=== PATIENT | male | born 1990 | race Caucasian/White ===

== ENCOUNTER 2017-04-07 23:11 | Emergency (ER) | payer SELFPAY ==
[2017-04-07 23:22] VITALS: BP 155/99; PULSE 88; TEMP 97.9; BMI 25.8
--- NOTE | 2017-04-08 00:44 | PDOC ---
History of Present Illness - General Chief Complaint: Substance Abuse Stated Complaint: SUBSTANCE ABUSE Time Seen by Provider: 04/08/17 00:20 Past History - Past Medical History Allergies/Adverse Reactions: Allergies Allergy/AdvReac Type Severity Reaction Status Date / Time No Known Allergies Allergy Verified 04/07/17 23:22 Home Medications: Ambulatory Orders NK [No Known Home Medication] 04/07/17 - Psycho/Social/Smoking Cessation Hx Anxiety: No Suicidal Ideation: No Smoking History: Never smoked Have you smoked in the past 12 months: No Information on smoking cessation initiated: No Hx Alcohol Use: No Drug/Substance Use Hx: No Substance Use Type: None *Physical Exam - Vital Signs Last Vital Signs Temp Pulse Resp BP Pulse Ox 97.9 F 88 18 155/99 100 04/07/17 23:20 04/07/17 23:20 04/07/17 23:20 04/07/17 23:20 04/07/17 23:20
== END 2017-04-08 00:44 | disposition left against medical advice (07) ==
LOC: JER 23:11 → SUPCPDRO 23:11 → JER 04-08 00:44
DX: Z53.21 Procedure and treatment not carried out due to patient leaving prior to being seen by health care provider (principal)
CPT/HCPCS: 99281-25

== ENCOUNTER 2019-09-13 17:57 | Emergency (ER) | payer OTHER ==
--- NOTE | 2019-09-13 18:11 | PDOC ---
Rapid Medical Evaluation Time Seen by Provider: 09/13/19 18:08 Medical Evaluation: Allergies Allergy/AdvReac Type Severity Reaction Status Date / Time No Known Allergies Allergy Verified 04/07/17 23:22 09/13/19 18:08 I have performed a brief in-person evaluation of this patient. The patient presents with a chief complaint of: patient requests "physical exam and blood work" - per mother patient has been using "horace dust" for the past few days and has been acting strangely. per mother patient has been aggressive and sometimes acts like he doesn't know her. mom states "sometimes he has chest pain" Pertinent physical exam findings: anxious, pacing around, stating "you're not going to put me in no psych gross." denying any drug use or chest pain I have ordered the following: ekg, labs, urine The patient will proceed to the ED for further evaluation. Discharge Disposition - Discharge Dispostion Condition at time of disposition: Stable - Referrals - Patient Instructions - Post Discharge Activity
[2019-09-13 18:33] VITALS: BP 126/71; PULSE 94; TEMP 98.4; BMI 25.8
[2019-09-13 18:42] LABS: BASO % 0.9 % (0-2.0); EOS % 0.7 % (0-4.5); HEMATOCRIT 43.1 % (35.4-49); HEMOGLOBIN 15.1 GM/dL (11.7-16.9); LYMPH % 23.4 % (8-40); MEAN CELL VOLUME 85.7 fl (80-96); MEAN PLT VOLUME 10.2 fl (7.5-11.1); MONO % 4.2 % (3.8-10.2); NEUT % 70.8 % (42.8-82.8); PLATELET COUNT 209 K/MM3 (134-434); RBC 5.03 M/mm3 (4.00-5.60); RDW 13.8 % (11.9-15.9); WHITE BLOOD COUNT 8.3 K/mm3 (4.0-10.0)
[2019-09-13 19:13] LABS: ALK PHOS 83 U/L (45-117); ANION GAP 7 MMOL/L (8-16); BILIRUBIN,TOTAL 0.9 mg/dL (0.2-1); BLOOD UREA NITROGEN 14.7 mg/dL (7-18); CALCIUM 9.1 mg/dL (8.5-10.1); CHLORIDE 106 mmol/L (98-107); CO2 29 mmol/L (21-32); CREATININE 1.1 mg/dL (0.55-1.3); GLUCOSE,RANDOM 88 mg/dL (74-106); POTASSIUM 3.9 mmol/L (3.5-5.1); SGOT/AST 70 U/L (15-37); SGPT/ALT 38 U/L (13-61); SODIUM 141 mmol/L (136-145); TOT PROT 7.4 g/dl (6.4-8.2)
--- NOTE | 2019-09-13 19:13 | PDOC ---
History of Present Illness - General Chief Complaint: Psychiatric Stated Complaint: psychiatric problem Time Seen by Provider: 09/13/19 18:08 History Source: Patient, Family Exam Limitations: No Limitations - History of Present Illness Initial Comments: 29 year old male with no PMH presented to ED with mother for AMS. Pt reported his mother brought him to the ED because she believes that he has been using horace dust. He reported he only uses Marijuana daily, and no other drugs or ETOH. He reported he has no complaints, and does not want to be in the ED. He denied chest pain, shortness of breath, nausea, vomiting, abdominal pain, back pain, headache, dizziness, lightheadedness, syncope. I spoke with the mother outside of the room with Dr. Contreras, PGY3 EM Resident fluent turkmen speaker. She reported that for the last three weeks she has noticed the patient has been intermittently altered, sometimes not recognizing her in the home, looking disheveled, stealing from the home and businesses, bring strange women in the home and using drugs in the home. She stated she believes all of his symptoms are 2/2 drug use and she does not feel safe with him living in her home. Past History - Past Medical History Allergies/Adverse Reactions: Allergies Allergy/AdvReac Type Severity Reaction Status Date / Time No Known Allergies Allergy Verified 09/13/19 18:50 Home Medications: Ambulatory Orders NK [No Known Home Medication] 04/07/17 COPD: No GI Disorders: No Kidney Stones: No - Immunization History Immunization Up to Date: No - Psycho Social/Smoking Cessation Hx Smoking History: Current every day smoker Have you smoked in the past 12 months: Yes Information on smoking cessation initiated: No Hx Alcohol Use: Yes Drug/Substance Use Hx: Yes Substance Use Type: None Review of Systems - Review of Systems Able to Perform ROS?: Yes Comments:: ROS General: denied fever, chills, generalized weakness. HEENT: denied sore throat, rhinorrhea, ear pain. Cardiovascular: denied chest pain, palpitations, syncope, diaphoresis. Respiratory: denied shortness of breath, cough, sputum production, hemoptysis. Gastrointestinal: denied abdominal pain, nausea, vomiting, diarrhea, constipation, blood in stool. Genitourinary: denied dysuria, increased urinary frequency, hematuria, urinary incontinence, flank pain. Back: denied back pain. Musculoskeletal: denied joint pain, muscle pain, joint swelling. Neurological: denied headache, dizziness, numbness, tingling, weakness. Integumentary: denied rash, laceration, abrasion. Hematologic/Lymphatic: denied bruising or bleeding. Psych: denied anxiety, depression, suicidal ideation, homicidal ideation. PE Constitutional: Well-nourished, Well-developed, appearing stated age. HEENT: head is normocephalic, atraumatic. EOMI. PERRLA. Neck: supple. Full ROM. Cardiovascular: regular heart rhythm. no murmurs. no pericardial friction rub. Respiratory: clear to auscultation bilaterally. no crackles, rhonchi or wheezing. no stridor. Gastrointestinal: soft, nontender. normal bowel sounds. no rebound, guarding, masses. Extremities: peripheral pulses intact. no lower extremity edema. Neurological: CN 2-12 grossly intact. moves all four extremities. Psych: awake, alert, oriented x3. follows commands. answers questions appropriately. *Physical Exam - Vital Signs Last Vital Signs Temp Pulse Resp BP Pulse Ox 98.4 F 94 H 18 126/71 99 09/13/19 18:09 09/13/19 18:09 09/13/19 18:09 09/13/19 18:09 09/13/19 18:09 ED Treatment Course - LABORATORY CBC & Chemistry Diagram: 09/13/19 18:30 09/13/19 18:30 - ADDITIONAL ORDERS Additional order review: 09/13/19 18:30 RBC 5.03 MCV 85.7 MCHC 35.0 RDW 13.8 MPV 10.2 Neutrophils % 70.8 Lymphocytes % 23.4 Monocytes % 4.2 Eosinophils % 0.7 Basophils % 0.9 Medical Decision Making - Medical Decision Making 29 year old male with above PMH presented to ED with mother for suspected drug use, mother does not feel safe with son in home, pt denied complaints and is completely alert and oriented to person/place/time/situation. He is clinically able to make his own medical decisions. He has agreed to cooperate with blood work. Initial Vital Signs Temp Pulse Resp BP Pulse Ox 98.4 F 94 H 18 126/71 99 09/13/19 18:09 09/13/19 18:09 09/13/19 18:09 09/13/19 18:09 09/13/19 18:09 Afebrile. No tachycardia. No tachypnea. No hypotension. No hypoxia on room air. EKG performed at 1816: rate 95, regular rhythm, normal axis, normal intervals, QTc 417, no acute ST changes. CBC WBC 8.3 K/mm3 (4.0-10.0) 09/13/19 18:30 RBC 5.03 M/mm3 (4.00-5.60) 09/13/19 18:30 Hgb 15.1 GM/dL (11.7-16.9) 09/13/19 18:30 Hct 43.1 % (35.4-49) 09/13/19 18:30 MCV 85.7 fl (80-96) 09/13/19 18:30 MCH 30.0 pg (25.7-33.7) 09/13/19 18:30 MCHC 35.0 g/dl (32.0-35.9) 09/13/19 18:30 RDW 13.8 % (11.9-15.9) 09/13/19 18:30 Plt Count 209 K/MM3 (134-434) 09/13/19 18:30 MPV 10.2 fl (7.5-11.1) 09/13/19 18:30 Absolute Neuts (auto) 5.8 K/mm3 (1.5-8.0) 09/13/19 18:30 Neutrophils % 70.8 % (42.8-82.8) 09/13/19 18:30 Lymphocytes % 23.4 % (8-40) 09/13/19 18:30 Monocytes % 4.2 % (3.8-10.2) 09/13/19 18:30 Eosinophils % 0.7 % (0-4.5) 09/13/19 18:30 Basophils % 0.9 % (0-2.0) 09/13/19 18:30 Nucleated RBC % 0 % (0-0) 09/13/19 18:30 No leuokcytosis. No anemia. 09/13/19 19:56 CMP Sodium 141 mmol/L (136-145) 09/13/19 18:30 Potassium 3.9 mmol/L (3.5-5.1) 09/13/19 18:30 Chloride 106 mmol/L (98-107) 09/13/19 18:30 Carbon Dioxide 29 mmol/L (21-32) 09/13/19 18:30 Anion Gap 7 MMOL/L (8-16) L 09/13/19 18:30 BUN 14.7 mg/dL (7-18) 09/13/19 18:30 Creatinine 1.1 mg/dL (0.55-1.3) 09/13/19 18:30 Est GFR (CKD-EPI)AfAm 103.13 09/13/19 18:30 Est GFR (CKD-EPI)NonAf 88.98 09/13/19 18:30 Random Glucose 88 mg/dL (74-106) 09/13/19 18:30 Calcium 9.1 mg/dL (8.5-10.1) 09/13/19 18:30 Total Bilirubin 0.9 mg/dL (0.2-1) 09/13/19 18:30 AST 70 U/L (15-37) H 09/13/19 18:30 ALT 38 U/L (13-61) 09/13/19 18:30 Alkaline Phosphatase 83 U/L (45-117) 09/13/19 18:30 Total Protein 7.4 g/dl (6.4-8.2) 09/13/19 18:30 Albumin 4.0 g/dl (3.4-5.0) 09/13/19 18:30 TSH 0.37 09/13/19 18:30 No electrolyte abnormalities. No Don. Elevated AST. 09/13/19 20:47 Pt informed of results. Pt offered Detox, he refused treatment tonight, but would be ammenable to receving contact information. I provided him with phone numbers and information on [facility] programs. He was alert and oriented x4, able to make his own medical decisions, no actively detoxing at this time. Discharge - Discharge Information Problems reviewed: Yes Clinical Impression/Diagnosis: Drug use disorder Condition: Stable Disposition: HOME - Admission No - Follow up/Referral - Patient Discharge Instructions Patient Printed Discharge Instructions: Substance Use Disorder Additional Instructions: Follow up with your primary care doctor within 3 days. Your care is not complete until you follow up. Return to the Emergency Department for increasing pain, vomiting, altered mental status, lightheadedness, passing out, chest pain, shortness of breath, fever, weakness, numbness, tingling or any other new, worsening or concerning symptoms. [facility] Detox [facility] -GET DIRECTIONS [facility] is a [facility] in [place], -Address: [address] [place] [address], [phone] - -Intake Line: -Website: [email or web address] -Primary Focus: Substance Abuse Rehab Services -Treatment Type: Hospital inpatient, Hospital inpatient detoxification -Treatment Approaches: Cognitive/behavioral therapy, Substance abuse counseling approach, [address] [place] [phone] -For 24/ Rehab Assistance Answered by [facility] -Trauma-related counseling, Rational emotive behavioral therapyPayment/ Insurance AcceptedCash or self-payment, Medicaid, Medicare, State financed health insurance plan other than -Medicaid, Private health insurance, insurance (e.g., )Payment Assistance -No information available, please contact the facility directly. -Type of Care:Detoxification , Methadone maintenance , Methadone detoxification , Buprenorphinemaintenance , Buprenorphine detoxification , Buprenorphine used in treatment, Methadone,[facility]-certified Opioid Treatment Program -Facility Operation:Private organization, State substance abuse agency, [facility] department of health, [facility] authority, The Joint Commission -Special Programs Provided:[place] -Our 72 bed detoxification program provides physician supervised treatment and compassionate care for those suffering from withdrawal from alcohol, opiates, benzodiazepines and other drugs of abuse. Our multidisciplinary treatment team helps each patient to safely end their physical addition and learn skills to maintain recovery through group and individual counseling, 12 Step experiences, psychiatric treatment and individually designed discharge planning. [phone]- CARE ([phone]) or [phone] -Our 69 bed rehabilitation program provides evidenced based chemical dependency treatment to those in need of a structured 24/7 setting. We have gender- specific treatment units and our attending physicians are all psychiatrists who help those suffering from mental illness. We offer an eclectic approach including the philosophy and practices of CBT, DE and the 12 Steps. 2-750- CARE (7413) or [phone] -[email or web address] -Our outpatient programs provide day rehabilitation and day/evening clinic treatment for those struggling with chemical dependency and our attending physicians are psychiatrists who help those suffering from mental illness. - Post Discharge Activity Work/Back to School Note: Back to Work
--- NOTE | 2019-09-13 20:17 | PDOC ---
Attending Attestation - Resident Resident Name: Cari Rogers - ED Attending Attestation I have performed the following: I have examined & evaluated the patient, The case was reviewed & discussed with the resident, I agree w/resident's findings & plan, Exceptions are as noted - HPI HPI: 09/13/19 20:16 29M brought in with Mother who states that he has been disoriented episodically for the past several weeks when he is taking drugs. Patient admits to regularly smoking marijuana. Patient has no complaints. - Physicial Exam PE: 09/14/19 00:51 Agree with exam as documented by resident - Medical Decision Making 09/14/19 00:51 No acute medical issues, complaints Will give patient information for voluntary rehab dc
--- NOTE | 2019-09-14 14:35 | EKG ---
Test Reason : Blood Pressure : / mmHG Vent. Rate : 095 BPM Atrial Rate : 095 BPM P-R Int : 126 ms QRS Dur : 088 ms QT Int : 332 ms P-R-T Axes : 073 086 053 degrees QTc Int : 417 ms NORMAL SINUS RHYTHM WITH SINUS ARRHYTHMIA POSSIBLE LEFT ATRIAL ENLARGEMENT NO PREVIOUS ECGS AVAILABLE Confirmed by MIGUEL ÁNGEL JACOBSON MD ([id number]) on 09/14/2019 2:34:50 PM Referred By: Confirmed By:MIGUEL ÁNGEL JACOBSON MD
== END 2019-09-13 20:45 | disposition home or self-care (01) ==
LOC: JER 17:57
DX: F19.188 Other psychoactive substance abuse with other psychoactive substance-induced disorder (principal); F12.10 Cannabis abuse, uncomplicated
CPT/HCPCS: 36415; 80053; 80307; 84443; 85025; 93005; 93010; 99284-25

== ENCOUNTER 2021-03-09 14:14 | Inpatient (IN) | payer OTHER ==
[2021-03-09 15:23] VITALS: BMI 34.6
[2021-03-09] MEDS ORDERED: P-EPHED 60MG/TRIPROLIDI 2.5MG TABLET PO PRN (19:05)
[2021-03-09] MEDS ORDERED: LOPERAMIDE HCL 2 MG CAPSULE PO PRN (19:05)
[2021-03-09] MEDS ORDERED: MAGNESIUM CITRATE 300 ML BOTTLE PO PRN (19:05)
[2021-03-09] MEDS ORDERED: MAGNESIUM HYDROX 2400MG/30ML ORAL SUSPENSION 30 ML CUP PO PRN (19:05)
[2021-03-09] MEDS ORDERED: NICOTINE POLACRILEX 2 MG GUM BC PRN (19:05)
[2021-03-09] MEDS ORDERED: MAG HYDROX/AL HYDROX/SIMETH 30 ML UNIT-DOSE CUP PO PRN (19:05)
[2021-03-09] MEDS ORDERED: IBUPROFEN 400 MG TABLET (FP) PO PRN (19:05)
[2021-03-09] MEDS ORDERED: guaiFENesin 200 MG/10 ML 10 ML UNIT-DOSE CUPS PO PRN (19:05)
[2021-03-09] MEDS ORDERED: TUBERCULIN PPD 5 TU/0.1ML VIAL ID ONE (20:59)
[2021-03-09] MEDS: THIAMINE HCL 100 MG TABLET (FP) PO SCH (21:38)
[2021-03-09] MEDS: hydrOXYzine PAMOATE 25 MG CAPSULE (FP) PO SCH (21:38)
[2021-03-09] MEDS: NICOTINE 21 MG/24 HOURS TOPICAL PATCH TD SCH (21:39)
[2021-03-09] MEDS: PRENATAL VITAMINS W/ FOLIC ACID TABLET (FP) PO SCH (21:39)
[2021-03-09] MEDS: MELATONIN 5 MG TABLETS PO SCH (21:42)
[2021-03-10] MEDS: hydrOXYzine PAMOATE 25 MG CAPSULE (FP) PO SCH ×5 (06:27→21:35)
[2021-03-10] MEDS: NICOTINE 21 MG/24 HOURS TOPICAL PATCH TD SCH (10:15)
[2021-03-10] MEDS: PRENATAL VITAMINS W/ FOLIC ACID TABLET (FP) PO SCH (10:15)
[2021-03-10 11:10] LABS: ALBUMIN 3.6 g/dl (3.4-5.0); BLOOD UREA NITROGEN 13.9 mg/dL (7-18)
[2021-03-10 11:16] LABS: BILIRUBIN,TOTAL 0.6 mg/dL (0.2-1); CALCIUM 9.3 mg/dL (8.5-10.1); TOT PROT 6.7 g/dl (6.4-8.2)
[2021-03-10 11:51] LABS: PLATELET COUNT 185 K/MM3 (134-434)
[2021-03-10 11:55] LABS: HEMATOCRIT 40.1 % (35.4-49); HEMOGLOBIN 13.5 GM/dL (11.7-16.9); MCH 29.5 pg (25.7-33.7); MCHC 33.6 g/dl (32.0-35.9); MEAN CELL VOLUME 87.7 fl (80-96); MEAN PLT VOLUME 10.7 fl (7.5-11.1); RBC 4.58 M/mm3 (4.00-5.60); RDW 14.3 % (11.9-15.9)
[2021-03-10] MEDS: MELATONIN 5 MG TABLETS PO SCH (21:35)
[2021-03-10] MEDS: THIAMINE HCL 100 MG TABLET (FP) PO SCH (21:35)
[2021-03-11] MEDS: hydrOXYzine PAMOATE 25 MG CAPSULE (FP) PO SCH ×3 (06:14→13:18)
[2021-03-11] MEDS: PRENATAL VITAMINS W/ FOLIC ACID TABLET (FP) PO SCH (10:05)
[2021-03-11] MEDS: NICOTINE 21 MG/24 HOURS TOPICAL PATCH TD SCH (10:05)
[2021-03-11] MEDS ORDERED: hydrOXYzine PAMOATE 25 MG CAPSULE (FP) PO PRN (13:52)
[2021-03-11] MEDS ORDERED: MASKS NR ONE (19:57)
[2021-03-11] MEDS: THIAMINE HCL 100 MG TABLET (FP) PO SCH (21:50)
[2021-03-11] MEDS: MELATONIN 5 MG TABLETS PO SCH (21:50)
[2021-03-12] MEDS: PRENATAL VITAMINS W/ FOLIC ACID TABLET (FP) PO SCH (09:41)
[2021-03-12] MEDS: NICOTINE 21 MG/24 HOURS TOPICAL PATCH TD SCH (09:41)
[2021-03-12] MEDS: THIAMINE HCL 100 MG TABLET (FP) PO SCH (21:17)
[2021-03-12] MEDS: MELATONIN 5 MG TABLETS PO SCH (21:18)
[2021-03-13 06:06] LABS: SARS-CoV-2 NAA Not Detected (Not Detected)
[2021-03-13] MEDS: NICOTINE 21 MG/24 HOURS TOPICAL PATCH TD SCH (09:54)
[2021-03-13] MEDS: PRENATAL VITAMINS W/ FOLIC ACID TABLET (FP) PO SCH (09:54)
[2021-03-13] MEDS: MELATONIN 5 MG TABLETS PO SCH (21:13)
[2021-03-13] MEDS: THIAMINE HCL 100 MG TABLET (FP) PO SCH (21:13)
[2021-03-14] MEDS: NICOTINE 21 MG/24 HOURS TOPICAL PATCH TD SCH (10:07)
[2021-03-14] MEDS: PRENATAL VITAMINS W/ FOLIC ACID TABLET (FP) PO SCH (10:07)
[2021-03-14] MEDS: MELATONIN 5 MG TABLETS PO SCH (21:36)
[2021-03-14] MEDS: THIAMINE HCL 100 MG TABLET (FP) PO SCH (21:36)
[2021-03-15] MEDS: PRENATAL VITAMINS W/ FOLIC ACID TABLET (FP) PO SCH (10:18)
[2021-03-15] MEDS: ACETAMINOPHEN 325 MG TABLET (FP) PO PRN (10:18)
[2021-03-15] MEDS: NICOTINE 21 MG/24 HOURS TOPICAL PATCH TD SCH (10:18)
[2021-03-15 10:44] LABS: EPI CELLS 7 /uL (0-25.1); HYALINE CASTS 0 /uL (0-3.1); URINE APPEARANCE CLEAR; URINE BACTERIA 30 /uL (0-1359); URINE BILIRUBIN NEGATIVE (NEGATIVE); URINE COLOR YELLOW; URINE GLUCOSE (UA) NEGATIVE (NEGATIVE); URINE KETONE NEGATIVE (NEGATIVE); URINE LEUK ESTERASE NEGATIVE (NEGATIVE); URINE NITRITE NEGATIVE (NEGATIVE); URINE PROTEIN NEGATIVE (NEGATIVE); URINE RBC 12 /uL (0-23.9); URINE UROBILINOGEN 0.2 mg/dL (0.2-1.0); URINE WBC 20 /uL (0-25.8)
[2021-03-15] MEDS: MELATONIN 5 MG TABLETS PO SCH (21:04)
[2021-03-15] MEDS: THIAMINE HCL 100 MG TABLET (FP) PO SCH (21:04)
[2021-03-16] MEDS: PRENATAL VITAMINS W/ FOLIC ACID TABLET (FP) PO SCH (09:49)
[2021-03-16] MEDS: NICOTINE 21 MG/24 HOURS TOPICAL PATCH TD SCH (09:49)
[2021-03-16] MEDS: MELATONIN 5 MG TABLETS PO SCH (21:52)
[2021-03-16] MEDS: THIAMINE HCL 100 MG TABLET (FP) PO SCH (21:52)
[2021-03-16] MEDS: ACETAMINOPHEN 325 MG TABLET (FP) PO PRN (21:53)
[2021-03-17] MEDS: NICOTINE 21 MG/24 HOURS TOPICAL PATCH TD SCH (09:38)
[2021-03-17] MEDS: PRENATAL VITAMINS W/ FOLIC ACID TABLET (FP) PO SCH (09:38)
[2021-03-17] MEDS: MELATONIN 5 MG TABLETS PO SCH (21:14)
[2021-03-17] MEDS: THIAMINE HCL 100 MG TABLET (FP) PO SCH (21:14)
[2021-03-18] MEDS: PRENATAL VITAMINS W/ FOLIC ACID TABLET (FP) PO SCH (09:33)
[2021-03-18] MEDS: NICOTINE 21 MG/24 HOURS TOPICAL PATCH TD SCH (09:33)
[2021-03-18] MEDS: THIAMINE HCL 100 MG TABLET (FP) PO SCH (21:49)
[2021-03-18] MEDS: MELATONIN 5 MG TABLETS PO SCH (21:49)
[2021-03-19] MEDS: NICOTINE 21 MG/24 HOURS TOPICAL PATCH TD SCH (09:49)
[2021-03-19] MEDS: PRENATAL VITAMINS W/ FOLIC ACID TABLET (FP) PO SCH (09:49)
[2021-03-19] MEDS: ACETAMINOPHEN 325 MG TABLET (FP) PO PRN (17:29)
[2021-03-19] MEDS: THIAMINE HCL 100 MG TABLET (FP) PO SCH (21:27)
[2021-03-19] MEDS: MELATONIN 5 MG TABLETS PO SCH (21:27)
[2021-03-20] MEDS: NICOTINE 21 MG/24 HOURS TOPICAL PATCH TD SCH (10:21)
[2021-03-20] MEDS: PRENATAL VITAMINS W/ FOLIC ACID TABLET (FP) PO SCH (10:21)
[2021-03-20] MEDS: MELATONIN 5 MG TABLETS PO SCH (22:44)
[2021-03-20] MEDS: THIAMINE HCL 100 MG TABLET (FP) PO SCH (22:44)
[2021-03-21] MEDS: NICOTINE 21 MG/24 HOURS TOPICAL PATCH TD SCH (10:02)
[2021-03-21] MEDS: PRENATAL VITAMINS W/ FOLIC ACID TABLET (FP) PO SCH (10:02)
[2021-03-21] MEDS: MELATONIN 5 MG TABLETS PO SCH (22:27)
[2021-03-21] MEDS: THIAMINE HCL 100 MG TABLET (FP) PO SCH (22:27)
[2021-03-22] MEDS: NICOTINE 21 MG/24 HOURS TOPICAL PATCH TD SCH (09:26)
[2021-03-22] MEDS: PRENATAL VITAMINS W/ FOLIC ACID TABLET (FP) PO SCH (09:26)
[2021-03-22] MEDS: THIAMINE HCL 100 MG TABLET (FP) PO SCH (21:53)
[2021-03-22] MEDS: MELATONIN 5 MG TABLETS PO SCH (21:53)
[2021-03-23 07:07] VITALS: BP 114/69; PULSE 76; TEMP 97.2
[2021-03-23] MEDS: NICOTINE 21 MG/24 HOURS TOPICAL PATCH TD SCH (09:56)
[2021-03-23] MEDS: PRENATAL VITAMINS W/ FOLIC ACID TABLET (FP) PO SCH (09:56)
== END 2021-03-23 09:55 | disposition home or self-care (01) | DRG 772 ==
LOC: YASAS 14:14 → Y3E 19:25 → Y5N 03-11 14:58
PROVIDERS: ADMIT Allergy & Immunology; ATTEND Allergy & Immunology
PROC: HZ42ZZZ Group Counseling for Substance Abuse Treatment, Cognitive-Behavioral (ICD-10-PCS; principal; 2021-03-09)
DX: F11.20 Opioid dependence, uncomplicated (principal); F16.20 Hallucinogen dependence, uncomplicated; F12.20 Cannabis dependence, uncomplicated; F17.210 Nicotine dependence, cigarettes, uncomplicated; Z87.81 Personal history of (healed) traumatic fracture; Z87.39 Personal history of other diseases of the musculoskeletal system and connective tissue
CPT/HCPCS: 36415; 80053; 81003; 85027; 86780; C9803; U0003; U0005

== ENCOUNTER 2021-07-27 19:16 | Emergency (ER) | payer OTHER ==
[2021-07-27 19:44] VITALS: BP 115/79; PULSE 95; TEMP 98.6; BMI 31.6
[2021-07-27] MEDS ORDERED: ACETAMINOPHEN 500 MG TABLET (FP) PO ONE (22:45)
[2021-07-27] MEDS ORDERED: ACETAMINOPHEN 500 MG TABLET (FP) ONE (22:46)
== END 2021-07-27 23:13 | disposition home or self-care (01) ==
LOC: JERFT 19:16
DX: M27.3 Alveolitis of jaws (principal)
CPT/HCPCS: 99283-25